=== PATIENT | female | born 1965 | race Caucasian/White ===

== ENCOUNTER 2020-04-22 10:00 | Emergency (ER) | payer OTHER, MEDICAID ==
[~2020-04-22] VITALS: Ht 162.6 cm; Wt 56.6 kg
[~2020-04-22 10:00] MED LIST: ACID1TAB7 PO; AMOX1TAB12 PO; CLON0.5T PO; CLON1TAB11 PO; DIVA-61 PO; DIVA250T4 PO; DIVA500T2 PO; DOXY100T PO; FLUO40CA9 PO; MIRT15TA PO; OMEP-110 PO; ONDA4TAB13 PO; PRED20TA PO; QUET300T5 PO; RISP2TAB35 PO; VENL150C PO
[2020-04-22 10:57] LABS: BASOPHILS # (AUTO) 0.01 x10^3/uL (0-0.1); BASOPHILS % (AUTO) 0 % (0-1); EOSINOPHILS # (AUTO) 0.39 x10^3/uL (0-0.4); EOSINOPHILS % (AUTO) 4 % (1-7); LYMPHOCYTES # (AUTO) 1.35 x10^3/uL (1-3.4); LYMPHOCYTES % (AUTO) 12 % (22-44); MD NO; MEAN CORPUSCULAR HEMOGLOBIN 31.2 pg (27.0-34.8); MEAN CORPUSCULAR HGB CONC 32.8 g/dL (32.4-35.8); MEAN CORPUSCULAR VOLUME 95.1 fL (80-100); MONOCYTES # (AUTO) 1.17 x10^3/uL (0.2-0.8); MONOCYTES % (AUTO) 11 % (2-9); NEUTROPHILS # (AUTO) 7.91 x10^3/uL (1.8-6.8); NEUTROPHILS % (AUTO) 73 % (42-75); PLATELET COUNT 207 x10^3/uL (130-400); RED BLOOD COUNT 3.97 x10^6/uL (3.82-5.3); RED CELL DISTRIBUTION WIDTH 15.9 % (9.6-15.2)
[2020-04-22] MEDS ORDERED: SUMATRIPTAN 6MG/0.5ML SQ PRN (11:00)
[2020-04-22] MEDS ORDERED: SUMATRIPTAN 6MG/0.5ML SQ ONE (11:05)
--- NOTE | 2020-04-22 11:29 | NUR ---
pt presents to ED with c/o headache, neck pain/stiffness x 3 weeks, left flank pain onset yesterday. pt medicated per emar with imitrex, per [facility] [place] pt is not suspicious for meningitis. pt is a&ox4, resps even and unlabored, good ROM to neck. pt instructed to provide clean catch ua, up to bathroom with steady gait.
[2020-04-22 11:51] LABS: MICROSCOPIC AUTO
[2020-04-22 12:23] LABS: ALBUMIN 3.5 g/dL (3.4-5.0); ANION GAP 7 mmol/L (5-15); CALCIUM 7.9 mg/dL (8.5-10.1); CHLORIDE 111 mmol/L (98-107); CREATININE 0.46 mg/dL (0.55-1.02)
[2020-04-22 13:00] VITALS: BP 123/60
--- NOTE | 2020-04-22 13:07 | NUR ---
pt given dc instructions, pt instructed to self isolate until asymptomatic x 3 days. pt is a&o, resps even and unlabored, ambulatory to dc desk with steady gait. all questions answered.
== END 2020-04-22 13:08 | disposition home or self-care (01) ==
LOC: ED 10:29
DX: S39.012A Strain of muscle, fascia and tendon of lower back, initial encounter (principal); S50.12XA Contusion of left forearm, initial encounter; G43.001 Migraine without aura, not intractable, with status migrainosus; R05 Cough; B34.9 Viral infection, unspecified; F17.200 Nicotine dependence, unspecified, uncomplicated; X58.XXXA Exposure to other specified factors, initial encounter; Y93.89 Activity, other specified; Y92.89 Other specified places as the place of occurrence of the external cause; Y99.8 Other external cause status
CPT/HCPCS: 36415; 71045; 80048; 81001; 82040; 85025; 96372; 99284; J3030